=== PATIENT | male | born 1985 | race Caucasian/White ===

== ENCOUNTER 2018-02-21 19:31 | Emergency (ER) | payer SELFPAY ==
[2018-02-21 19:50] VITALS: BP 126/85
[2018-02-21] MEDS ORDERED: CLINDAMYCIN 150 MG CAPSULE PO STA (20:29)
[2018-02-21] MEDS ORDERED: IBUPROFEN 600 MG TABLET PO STA (20:32)
[2018-02-21] MEDS ORDERED: ACETAMINOPHEN 500 MG TABLET PO STA (20:32)
--- NOTE | 2018-02-21 20:40 | ED Physician Documentation ---
PD HPI SKIN - Stated complaint Stated Complaint: FEVER/LEG SORES - Chief complaint Chief Complaint: Wound - History obtained from History obtained from: Patient, Family - History of Present Illness Timing - onset: How many days ago, How many weeks ago (1) Timing - details: Gradual onset, Still present Location: RLE Quality / character: Painful, Discolored Similar symptoms before: Has not had sx before Recently seen: Not recently seen - Additional information Additional information: Patient is a 32 year old male with a history of ivda, and skin popping who is presenting to the emergency department for skin rash. According to patient and mother the patient relapsed over the last few weeks. patient has had worsening rash and a fever of 101 at home. UPon initial evaluation in the emergency department patient is awake, alert and febrile. patient states that he does not want any IV or blood draws. Review of Systems Constitutional: reports: Fever, Chills Eyes: reports: Reviewed and negative Ears: reports: Reviewed and negative Cardiac: denies: Chest pain / pressure, Palpitations, Calf pain Skin: reports: Rash, Lesions Musculoskeletal: reports: Extremity pain, Extremity swelling Neurologic: denies: Generalized weakness, Focal weakness Immunocompromised: denies: Immunocompromised PD PAST MEDICAL HISTORY - Present Medications Home Medications: Ambulatory Orders Medication Instructions Recorded Confirmed Clindamycin HCl [Clindamycin 300MG 300 mg PO Q6H 7 Days capsule 02/21/18 [facility]] - Allergies Allergies/Adverse Reactions: Allergies Allergy/AdvReac Type Severity Reaction Status Date / Time No Known Drug Allergies Allergy Verified 02/21/18 19:36 PD ED PE NORMAL - Vitals Vital signs reviewed: Yes - General General: Alert and oriented X 3 - HEENT HEENT: Atraumatic - Cardiac Cardiac: RRR, No murmur - Respiratory Respiratory: No respiratory distress - Abdomen Abdomen: Non distended - Neuro Neuro: Alert and oriented X 3, No motor deficit, Normal speech Eye Opening: Spontaneous Motor: Obeys Commands Verbal: Oriented GCS Score: 15 PD ED PE EXPANDED - Derm Derm: Rash (multiple track navarro on right leg, with complete cellulitis of right lower extremity), Track navarro, Pick navarro. No: Abscess Results - Vitals Vitals: Vital Signs - 24 hr 02/21/18 02/21/18 19:36 21:00 Temperature 38.1 C H Heart Rate 102 H Respiratory 16 16 Rate Blood Pressure 126/85 H O2 Saturation 98 Oxygen O2 Source Room air PD MEDICAL DECISION MAKING - ED course Complexity details: reviewed old records, reviewed results, re-evaluated patient , considered differential, d/w patient, d/w family ED course: Patient was seen and examined at bedside. Patient was with his mother. Patient was offered a dose of IV medications but he refused. Patient was able to tolerate PO without any difficulty and was treated with clindamcyin, tylenol and ibuprofen. Patient was stable for discharge home with his mother. Departure - Departure Disposition: , Self Care Clinical Impression: Cellulitis Condition: Good Instructions: ED Infec Skin Cellulitis Follow-Up: primary,care provider [Other] - Within 3 Days Prescriptions: Clindamycin HCl [Clindamycin 300MG CAP] 300 mg PO Q6H 7 Days capsule Comments: Your symptoms today are being caused by skin infection, likely secondary to the IV drug abuse. You are being covered for mrsa and will need to take the antibiotics 4 times a day. You should take it with yogurt or probiotics to help reduce GI side effects. You can take motrin or tylenol for pain or fevers. You should follow up with your doctor for a wound check. You may return to the emergency department at any time for new, worsening or uncontrollable symptoms. Discharge Date/Time: 02/21/18 21:00
== END 2018-02-21 21:00 | disposition home or self-care (01) ==
LOC: ED 19:31
DX: L03.115 Cellulitis of right lower limb (principal); F19.10 Other psychoactive substance abuse, uncomplicated
CPT/HCPCS: 87070; 87181; 87205; 99283; A9270

== ENCOUNTER 2018-09-16 00:29 | Outpatient (CLI) | payer SELFPAY | END 2018-09-16 00:30 | disposition EMS.NT | LOC: EMS 00:29 | PROVIDERS: ATTEND Surgery | DX: R46.89 Other symptoms and signs involving appearance and behavior (principal) ==

== ENCOUNTER 2019-10-14 09:48 | Outpatient (CLI) | payer BC | END 2019-10-14 09:49 | disposition critical access hospital (66) | LOC: EMS 09:48 | PROVIDERS: ATTEND Surgery | DX: R45.1 Restlessness and agitation (principal) | CPT/HCPCS: A0425; A0429 ==

== ENCOUNTER 2019-10-14 10:14 | Emergency (ER) | payer BC ==
[2019-10-14 11:18] LABS: BASOPHILS # (AUTO) 0.1 10^3/uL (0.0-0.1); BASOPHILS % (AUTO) 0.6 %; EOSINOPHILS # (AUTO) 0.3 10^3/uL (0.0-0.7); EOSINOPHILS % (AUTO) 2.5 %; HGB - HEMOGLOBIN 15.4 g/dL (14.0-18.0); LYMPHOCYTES # (AUTO) 2.4 10^3/uL (1.5-3.5); LYMPHOCYTES % (AUTO) 18.9 %; MEAN CORPUSCULAR HEMOGLOBIN 31.1 pg (27.0-31.0); MEAN CORPUSCULAR VOLUME 88.9 fL (80.0-94.0); MEAN PLATELET VOLUME 9.5 fL (7.4-11.4); MONOCYTES # (AUTO) 1.1 10^3/uL (0.0-1.0); MONOCYTES % (AUTO) 8.4 %; NEUTROPHILS # (AUTO) 8.8 10^3/uL (1.5-6.6); NEUTROPHILS % (AUTO) 69.2 %; PLT - PLATELET COUNT 250 10^3/uL (130-450); RED BLOOD COUNT 4.95 10^6/uL (4.70-6.10); RED CELL DISTRIBUTION WIDTH 12.2 % (12.0-15.0); WHITE BLOOD COUNT 12.8 x10^3/uL (4.8-10.8)
[2019-10-14 11:35] LABS: ACETAMINOPHEN < 10 ug/mL (10-30); ALBUMIN 4.7 g/dL (3.2-5.5); ALBUMIN/GLOBULIN RATIO 1.7 (1.0-2.2); ALKALINE PHOSPHATASE 56 IU/L (42-121); ALT ALANINE AMINOTRANSFERASE 18 IU/L (10-60); AST ASPARTATE AMINOTRANSFERASE 28 IU/L (10-42); BUN - BLOOD UREA NITROGEN 28 mg/dL (6-20); CALCIUM 9.4 mg/dL (8.5-10.3); CARBON DIOXIDE - CO2 26 mmol/L (21-32); CHLORIDE 100 mmol/L (101-111); CREATININE 0.9 mg/dL (0.6-1.2); GFR - MDRD 98 (>89); GLUCOSE 124 mg/dL (70-100); LIPASE 29 U/L (22-51); SALICYLATE < 6.0 mg/dL; SODIUM 137 mmol/L (135-145); TOTAL PROTEIN 7.5 g/dL (6.7-8.2)
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
[2019-10-14] MEDS ORDERED: OLANZapine 10 MG VIAL IM STA (12:07)
[2019-10-14] MEDS ORDERED: LORazepam 2 MG/ML VIAL IM STA (12:07)
[2019-10-14 16:45] LABS: MUDS CUTOFF CONCENTRATIONS CUTOFF CONC BELOW:
[2019-10-14 16:49] LABS: BILIRUBIN,URINE NEGATIVE (NEGATIVE); GLUCOSE, URINE (UA) NEGATIVE (NEGATIVE); KETONES,URINE (UA) NEGATIVE (NEGATIVE); LEUKOCYTE ESTERASE, URINE NEGATIVE (NEGATIVE); NITRITE,URINE NEGATIVE (NEGATIVE); OCCULT BLOOD,URINE NEGATIVE (NEGATIVE); PROTEIN,URINE NEGATIVE (NEGATIVE); UROBILINOGEN,URINE 0.2 (NORMAL) E.U./dL (NORMAL)
[2019-10-14 16:55] LABS: CLARITY,URINE CLEAR (CLEAR)
[2019-10-14 16:59] LABS: AMPHETAMINE SCREEN,URINE POSITIVE (NEGATIVE); BENZODIAZEPINES SCREEN, URINE NEGATIVE (NEGATIVE); COCAINE SCREEN URINE NEGATIVE (NEGATIVE); METHADONE SCREEN, URINE NEGATIVE (NEGATIVE); METHAMPHETAMINES SCREEN, URINE POSITIVE (NEGATIVE); OPIATE SCREEN, URINE POSITIVE (NEGATIVE); OXYCODONE SCREEN, URINE NEGATIVE (NEGATIVE); PROPOXYPHENE SCREEN, URINE NEGATIVE (NEGATIVE); TRICYCLIC ANTIDEPRESSANT,URINE NEGATIVE (NEGATIVE)
[2019-10-14] MEDS ORDERED: LORazepam 1 MG TABLET PO STA (20:48)
--- NOTE | 2019-10-14 20:49 | ED Physician Documentation ---
ED Addendum - Addendum Addendum: 10/14/19 20:48 And out to me by Dr. Ojeda, briefly this is young man with some mental health issues but also ongoing methamphetamine use who is unpredictable at home today. At shift change the plan was for the DCR to see him. Burton the DCR saw him, talked with the parents. [place] there was no indication for involuntary treatment, and after discussion he says the parents will come by in the morning to pick him up. He does say that if the patient were to change significantly we should call him back.
[2019-10-15 06:59] VITALS: BP 118/78
== END 2019-10-15 08:24 | disposition home or self-care (01) ==
LOC: EDUNIT# → ED 10:14
DX: F31.10 Bipolar disorder, current episode manic without psychotic features, unspecified (principal); F41.9 Anxiety disorder, unspecified; R45.1 Restlessness and agitation; F15.90 Other stimulant use, unspecified, uncomplicated; R00.0 Tachycardia, unspecified; Z91.14 Patient's other noncompliance with medication regimen
CPT/HCPCS: 36415; 80320; 80329; 81003; 82550; 83690; 96372; 99283; 99284; J2060; 80053; 80306; 80307; 81001; 84443; 85025; 87086

== ENCOUNTER 2021-03-20 19:11 | Emergency (ER) | payer MEDICARE ==
[2021-03-20 19:20] VITALS: BP 126/85
[2021-03-20] MEDS ORDERED: CLINDAMYCIN 150 MG CAPSULE PO STA (19:32)
--- NOTE | 2021-03-20 19:33 | ED Physician Documentation ---
PD HPI LOWER EXT INJURY - Stated complaint Stated Complaint: RT LEG LAC - Chief complaint Chief Complaint: Laceration - History obtained from History obtained from: Patient - History of Present Illness PD HPI LOW EXT INJURY LOCATION: Right, Lower leg Pain level max: 3 Pain level now: 2 Contributing factors: No: Anticoagulated, Prior ortho surgery Recently seen: Not recently seen - Additional information Additional information: 35-year-old male states that he excellently cut his leg on a dumpster several days ago. He states that there is no redness, swelling to the right lower extremity near the wound. He states it drained earlier today. Nothing makes it better or worse. Tetanus is up-to-date. Not anticoagulated. No fevers. No chills. He lisa a line around the redness yesterday, has not extended today. Review of Systems Constitutional: denies: Fever, Chills Neurologic: denies: Headache PD PAST MEDICAL HISTORY - Past Medical History Cardiovascular: None Respiratory: None Neuro: None Endocrine/Autoimmune: None GI: None : None HEENT: None Psych: Bipolar disorder (since childhood) Musculoskeletal: None Derm: None - Past Surgical History Past Surgical History: No - Present Medications Home Medications: Ambulatory Orders Medication Instructions Recorded Confirmed OXcarbazepine [Trileptal] 300 mg PO BID #30 tablet 10/15/19 buPROPion [Wellbutrin Sr] 150 mg PO BID #30 tablet 10/15/19 clindamycin HCL [Cleocin HCl] 300 mg PO Q6H #40 cap 03/20/21 - Allergies Allergies/Adverse Reactions: Allergies Allergy/AdvReac Type Severity Reaction Status Date / Time venlafaxine [From Effexor] AdvReac Anxiety Verified 03/20/21 19:13 - Social History Does the pt smoke?: No Smoking Status: Light tobacco smoker Does the pt drink ETOH?: No Does the pt have substance abuse?: No - Immunizations Immunizations are current?: Yes - POLST Patient has POLST: No PD ED PE NORMAL - Vitals Vital signs reviewed: Yes - General General: Alert and oriented X 3, No acute distress - Derm Derm: Warm and dry - Extremities Extremities: Other (Right lower extremity - There is a 5 x 10 cm area of erythema to the medial aspect of the right lower extremity, calf area. There is an open wound that appears to have drained. There is no fluctuance. No further drainage for culture. Neurovascularly intact.) - Neuro Neuro: Alert and oriented X 3 - Psych Psych: Normal mood, Normal affect Results - Vitals Vitals: Vital Signs - 24 hr 03/20/21 19:13 Temperature 36.5 C Heart Rate 96 Respiratory 16 Rate Blood Pressure 126/85 H O2 Saturation 98 Oxygen O2 Source Room air PD MEDICAL DECISION MAKING - ED course Complexity details: considered differential, d/w patient, d/w family (Patient's father is with him) ED course: 35-year-old male with what appears to be cellulitis of the right lower extremity. No induration. No drainable abscess. Will place on antibiotics. Patient will return if he fails to improve in the next 24 hours. No evidence of sepsis. Patient counseled regarding signs and symptoms for which I believe and urgent re-evaluation would be necessary. Patient with good understanding of and agreement to plan and is comfortable going home at this time This document was made in part using voice recognition software. While efforts are made to proofread this document, sound alike and grammatical errors may occur. Departure - Departure Disposition: 01 Home, Self Care Clinical Impression: Cellulitis Qualifiers: Site of cellulitis: extremity Site of cellulitis of extremity: lower extremity Laterality: right Qualified Code(s): L03.115 - Cellulitis of right lower limb Condition: Good Instructions: ED Infec Skin Cellulitis Follow-Up: BRANDI SHAFER MD [Primary Care Provider] - Within 3 Days Prescriptions: clindamycin HCL [Cleocin HCl] 300 mg PO Q6H #40 cap Comments: Take all antibiotics until gone. Return if you worsen. This should start to improve in the next 24 to 36 hours. If you notice redness coming up your leg, develop fevers or chills or other new or worrisome symptoms, please return immediately. Discharge Date/Time: 03/20/21 19:41
== END 2021-03-20 19:41 | disposition home or self-care (01) ==
LOC: ED 19:11
DX: L03.115 Cellulitis of right lower limb (principal); S81.811A Laceration without foreign body, right lower leg, initial encounter; W26.8XXA Contact with other sharp object(s), not elsewhere classified, initial encounter; Z72.0 Tobacco use
CPT/HCPCS: 99282; 99284; A9270